=== PATIENT | female | born 1985 | race Caucasian/White ===

== ENCOUNTER 2021-08-07 07:35 | Outpatient (CLI) | payer OTHER | END 2021-08-07 07:36 | disposition critical access hospital (66) | LOC: EMS 07:35 | DX: S69.91XA Unspecified injury of right wrist, hand and finger(s), initial encounter (principal); S89.91XA Unspecified injury of right lower leg, initial encounter; V59.40XA Driver of pick-up truck or van injured in collision with unspecified motor vehicles in traffic accident, initial encounter; Y92.413 State road as the place of occurrence of the external cause | CPT/HCPCS: A0425; A0427 ==

== ENCOUNTER 2021-08-07 08:04 | Emergency (ER) | payer OTHER ==
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
[2021-08-07] MEDS ORDERED: HYDROmorphone 1 MG/ML CARPUJECT IVP STA (08:48)
[2021-08-07] MEDS ORDERED: KETOROLAC 15 MG/ML VIAL IVP STA (08:48)
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
[2021-08-07 09:40] VITALS: BP 120/67
== END 2021-08-07 09:40 | disposition home or self-care (01) ==
LOC: ED 08:04
DX: S52.571A Other intraarticular fracture of lower end of right radius, initial encounter for closed fracture (principal); S40.212A Abrasion of left shoulder, initial encounter; S80.01XA Contusion of right knee, initial encounter; V49.40XA Driver injured in collision with unspecified motor vehicles in traffic accident, initial encounter
CPT/HCPCS: 29105; 73110; 73562; 96374; 99283; 99284; J1170